=== PATIENT | female | born 1970 | race Caucasian/White ===

== ENCOUNTER 2023-04-05 08:00 | Outpatient (CLI) | payer BC, SELFPAY ==
--- NOTE | ~2023-04-05 | XR_ITS ---
XR knee RT min 4V 04/05/2023 22:40 INDICATION: Right knee pain PROCEDURE: 4 views right knee COMPARISON: No prior studies for comparison. FINDINGS: Fracture, dislocation or subluxation is not identified. There is anatomic alignment. Mild o steoarthritis. No joint effusion. The soft tissues appear within normal limits. No foreign bodies ar e identified. IMPRESSION: 1: Mild osteoarthritis of the right knee. Reviewed, dictated and finalized at location L.
--- NOTE | ~2023-04-05 | XR_ITS ---
EXAMINATION: XR foot LT min 3V DATE: 04/05/2023 22:40 INDICATION: Left foot pain TECHNIQUE: Dorsoplantar, lateral, and 2 oblique views of the left foot were obtained. COMPARISON: None. FINDINGS: No fracture, dislocation, or subluxation. Posterior and plantar calcaneal enthesophytes are noted. The bones, soft tissues, and joint spaces are otherwise normal. IMPRESSION: 1. No acute osseous abnormality. Reviewed, dictated and finalized at location A.
--- NOTE | ~2023-04-05 | XR_ITS ---
EXAMINATION: XR ankle LT min 3V DATE: 04/05/2023 22:40 INDICATION: Left ankle pain TECHNIQUE: Anteroposterior, lateral, mortise, and additional oblique view of the ankle were obtained. COMPARISON: None. FINDINGS: Bone alignment is normal. There is no fracture. The joint spaces and soft tissues are unrem arkable. Posterior and plantar calcaneal enthesophytes are noted. IMPRESSION: 1. No acute osseous abnormality. Reviewed, dictated and finalized at location A.
[2023-04-06 08:57] LABS: Alanine Aminotransferase 19 U/L (6-35); Albumin Level 4.6 g/dL (3.5-5.1); Alkaline Phosphatase 121 U/L (38-126); Anion Gap 8 mmol/L (8-16); Aspartate Amino Transferase 41 U/L (14-36); Bilirubin,Total 0.4 mg/dL (0.2-1.3); Blood Urea Nitrogen 9 mg/dL (7-17); CRP 0.7 mg/dL (<1.0); Calcium 9.9 mg/dL (8.4-10.2); Carbon Dioxide 28 mmol/L (22-30); Chloride 105 mmol/L (98-107); Cholesterol 228 mg/dL (0-200); Estimated Glomerular Filt Rate > 60; Glucose 88 mg/dL (65-110); HDL Direct 44 mg/dL; Hematocrit 41.4 % (37.0-47.0); Hemoglobin 13.3 g/dL (12.0-15.0); LDL Cholesterol Direct 123 mg/dL; Mean Corpuscular HGB Conc 32.1 g/dl (32-36); Mean Corpuscular Hemoglobin 29.9 pg (26-34); Mean Platelet Volume 9.5 fl (7.4-10.4); Platelet Count Result 436 k/mm3 (150-375); Potassium 3.7 mmol/L (3.4-5.0); Red Blood Count 4.45 M/mm3 (4.2-5.4); Red Cell Distribution Width 13.8 % (11.5-14.5); Sodium 141 mmol/L (137-145); Thyroid Stimulating Hormone 0.606 uIU/mL (0.465-4.680); Triglycerides 246 mg/dL (<150); White Blood Count 10.4 K/mm3 (4.5-10.0)
[2023-04-06 08:58] LABS: Basophils Percent Auto 0.3 % (0.2-1.2); Eosinophils Absolute Auto 0.3 K/mm3 (0-0.3); Eosinophils Percent Auto 2.4 % (0-4.4); Immature Granulocyte Absolute 0.03 K/mm3 (0.00-0.031); Immature Granulocyte Percent A 0.3 % (0-0.5); Lymphocytes Absolute Auto 2.03 K/mm3 (0.9-3.2); Lymphocytes Percent Auto 19.6 % (18.3-44.2); Monocytes Absolute Auto 0.8 K/mm3 (0.1-0.6); Monocytes Percent Auto 7.4 % (2.6-8.5); Neutrophils Absolute Auto 7.2 K/mm3 (1.3-6.7)
[2023-04-06 08:59] LABS: Free T4 Free Thyroxine 1.22 ng/mL (0.78-2.19); Vitamin D 25 Hydroxy 27.4 ng/mL
[2023-04-06 09:00] LABS: Hemoglobin A1C 5.7 % (<5.7)
[2023-04-06 09:01] LABS: Rheumatoid Factor < 8.6 IU/ML (<12)
[2023-04-06 09:02] LABS: Erythrocyte Sedimentation Rate 65 mm/hr (0-20)
[2023-04-06 09:03] LABS: Appearance Urine Clear (Clear); Color Urine Yellow (Yellow); Glucose Urine UA Negative (Negative); Ketones Urine Negative (Negative); Nitrate Urine Negative (Negative); Protein Urine Trace mg/dL (Negative); Specific Grav Ur 1.017 (1.001-1.035); pH Urine 5.5 (5.0-9.0)
[2023-04-06 09:04] LABS: Add Urine Microscopic? YES; Bilirubin Urine Negative (Negative); Leukocyte Esterase Ur Negative LEU/UL (Negative); Squamous Epithelial Cell Urine Few /hpf (Few); Urobilinogen Urine 0.2 mg/dL (<2.0); WBC Urine 0-5 /hpf
[2023-04-06 09:05] LABS: Bacteria Urine None seen /hpf
== END 2023-04-05 08:01 | disposition home or self-care (01) ==
LOC: ANHLAB 19:04
PROVIDERS: PCP Internal Medicine; Visit Provider Internal Medicine
DX: M17.11 Unilateral primary osteoarthritis, right knee (principal); M79.672 Pain in left foot
CPT/HCPCS: 36415; 73564; 73610; 73630; 80048; 80061; 80076; 81001; 82306; 83036; 84439; 84443; 85025; 85652; 86140; 86430

== ENCOUNTER 2023-08-18 00:59 | Day surgery (SDC) | payer BC, SELFPAY ==
[2023-08-16 11:26] VITALS: BMI 23.8
--- NOTE | 2023-08-16 11:31 | PC.NURSE ---
Report to the Outpatient Waiting Room, entrance under the green pavilion located off [facility], at time 7:30 on date 08/18/23. Planned Procedure Time: 9:30. Time changes happen often and if your time is changed the preop area will call you the afternoon before. - You and your visitor will be asked to self-screen and do not enter if you have any COVID symptoms. - A mask is optional within the hospital at this time. Patients may have clear liquids (water, carbonated beverages, clear teas, apple juice) until 3 hours prior to surgery (6:30) with a maximum of 20 ounces. - No food from midnight until time of surgery Take the following medications with a SIP of water the morning of surgery: NONE DO NOT STOP ANY OF YOUR OTHER PRESCRIPTION MEDICATIONS PRIOR TO SURGERY ?EXCEPT THE FOLLOWING Medications to discontinue per physician: VITAMINS/SUPPLEMENTS Date to take last dose: NO MORE UNTIL AFTER SURGERY Please no make-up, nail maltese, hairspray, perfume, deodorant, or body powder the day of surgery. No jewelry (including any body piercings) or valuables the day of surgery, leave them at home. Please take a shower or bath the night before, or the morning of, surgery with an antibacterial soap. Wear comfortable, loose fitting clothing. - Jewelry must be removed prior to entering the operating room. Rings and piercings that are not removed may be cut off. - The hospital will not accept responsibility for valuables. - Please leave all valuables, including medications, at home the day of surgery. If you are going home after surgery, a licensed sprinkler truck driver must drive you home. - NO public transportation without another adult if you receive anesthesia. - We recommend that an adult stay with you for 24 hours following discharge. - We also recommend that you do not drive, make important decision, drink alcoholic beverages, or take any drugs that were not prescribed by your health care provider for at least 24 hours after your discharge time. Follow any additional instructions given to you from your surgeon. If you or anyone in your household have experienced Covid symptoms in the past week, please notify your surgeon or the nurse liaison at the phone number below for possible testing. Telephone instructions given to PT - PATRICIA LERNER and asked if any additional questions and then verbalized understanding. Patient advised to call surgeon office or pre surgery nurse liaison [phone] if any additional questions.
--- NOTE | 2023-08-16 12:37 | PM.IMHP ---
H&P: HPI History of Present Illness Date/Time: 08/16/23 12:37 Chief Complaint: Pelvic pain all/dyspareunia/uterine prolapse Narrative: Is a 52-year-old female with severe pelvic pain. She is admitted for robotic total vaginal hysterectomy and bilateral salpingo-oophorectomy. Risks and benefits reviewed including min exclusive of , aspiration burning, bleeding, transfusion, perforation injury to bowel, bladder, ureters, or other internal organs with need for open laparotomy. She received the ACOG handout entitled hysterectomy as well as the Ki handout. She had all questions answered. She asked to proceed PMFSH Past Medical History Medical History Follow up Family History Family History Mother Family history of blood dyscrasia Hypertension Family history of arthritis Family history of diabetes mellitus in first degree relative Renal failure Chronic kidney disease Father Hypertension Family history of arthritis Family history of diabetes mellitus in first degree relative Family history of hearing loss Sepsis Sibling Fibromyalgia Social History Social History Smoking packs per day: 0.5 Smoking cigarettes per day: 10.0 Years smoked: 25 Smoking pack-years: 12.50 Smoking status: Current every day smoker Tobacco type: cigarettes Alcohol intake: current Alcohol use details: VERY RARE Substance use: never Substance use type: does not use Lack of Transportation: No Lack of Food: Never True Current Housing: I Have Housing Concerned About Future Housing: No Difficulty Paying Gas/Electric Bills: No Difficulty Paying for Meds: No Currently Unemployed: No Difficulty w/ Childcare or Family Care: No Living arrangements: with family Additional living arrangements comments: Occupation/Education: occupation Additional occupation/education comments: [email or web address] Gender identity (if verbalized by the patient): Female Sexual Orientation (if Verbalized by the Patient): Straight or Heterosexual Spiritual care concerns: No Meds Home Medications and Allergies Home Medications Medication Instructions Recorded Confirmed Type ascorbate calcium (vitamin C) 500 500 mg PO DAILY 04/10/23 08/16/23 History mg tablet collagen,hydrolysate 500 mg-biotin 1 cap PO DAILY 08/16/23 08/16/23 History 800 mcg-ascorbic acid 50 mg capsule (Collagen 1500 Plus C) Allergies Allergy/AdvReac Type Severity Reaction Status Date / Time Penicillins Allergy Unknown Swelling Verified 08/16/23 11:23 Sulfa (Sulfonamide Allergy Unknown Swelling Verified 08/16/23 11:23 Antibiotics) Exam Const: General: cooperative, healthy appearing and comfortable Nutritional Appearance: average body habitus Orientation/consciousness: oriented to person, oriented to place and oriented to time HENMT: Head: normal to inspection Resp: Effort & Inspection: normal respiratory effort Cardio: Rate: regular rate Rhythm: regular rhythm Heart sounds: S1 normal heart sound present and S2 normal heart sound present GI: Inspection: normal to inspection : External Female Exam: normal external appearance Speculum Exam - Vagina: normal appearance of the vagina Speculum Exam - Cervix: normal appearance of the cervix (Second-degree prolapse) Bimanual exam- vagina & uterus: enlarged Bimanual Exam- Adnexa, other: tender on the right Assessment and Plan Assessment and plan (1) Pelvic pain: Code(s): R10.2 - Pelvic and perineal pain Status: Acute (2) Dyspareunia: Status: Acute (3) Uterine prolapse: Code(s): N81.4 - Uterovaginal prolapse, unspecified Status: Acute Plan Robotic total vaginal hysterectomy and bilateral salpingo-oophorectomy
[2023-08-18] VITALS (12 sets, daily range): BP systolic 115–141; BP diastolic 62–82; PULSE 69–81; RESP 12–19; TEMP 36.4–36.8; O2SAT 95–100; BMI 25.6
--- NOTE | 2023-08-18 06:16 | WPDHPUPDATE1 ---
History and Physical Update Update Date/Time: 08/18/23 06:16 History and Physical has been reviewed, including an updated exam of the patient. There are NO changes in the patient's condition. Risks, benefits, and alternatives have been discussed and questions answered. Patient agrees to proceed with procedure.
[2023-08-18] MEDS: LACTATED RINGERS 1,000 ML 30 ML IV CONT ×2 (08:15→11:04)
[2023-08-18 08:24] LABS: Basophils Percent Auto 0.4 % (0.2-1.2); Eosinophils Absolute Auto 0.7 K/mm3 (0-0.3); Eosinophils Percent Auto 8.1 % (0-4.4); Hematocrit 37.4 % (37.0-47.0); Hemoglobin 11.9 g/dL (12.0-15.0); Immature Granulocyte Absolute 0.02 K/mm3 (0.00-0.031); Immature Granulocyte Percent A 0.2 % (0-0.5); Lymphocytes Absolute Auto 2.81 K/mm3 (0.9-3.2); Lymphocytes Percent Auto 33.7 % (18.3-44.2); Mean Corpuscular HGB Conc 31.8 g/dl (32-36); Mean Corpuscular Hemoglobin 29.8 pg (26-34); Mean Corpuscular Volume 93.7 fl (80-100); Mean Platelet Volume 9.1 fl (7.4-10.4); Monocytes Absolute Auto 0.7 K/mm3 (0.1-0.6); Monocytes Percent Auto 8.6 % (2.6-8.5); Neutrophils Absolute Auto 4.1 K/mm3 (1.3-6.7); Platelet Count Result 363 k/mm3 (150-375); Red Blood Count 3.99 M/mm3 (4.2-5.4); Red Cell Distribution Width 13.5 % (11.5-14.5); White Blood Count 8.4 K/mm3 (4.5-10.0)
[2023-08-18] MEDS: ACETAMINOPHEN 500 MG TABLET 1000 MG PO (08:24)
[2023-08-18] MEDS: KETOROLAC 15 MG/ML VIAL (*BKC) IV PUSH (08:24)
--- NOTE | 2023-08-18 09:21 | WPDANESEPPF ---
Anes - Initial Pre Proc Eval Procedure: Operation Date: 08/18/23 09:30 Proposed Procedures p Robotic Assisted Total Vaginal Hysterectomy with Bilateral Salpingo-Oophorectomy - Ranjan Gonzalez MD Date/Time: 08/18/23 09:21 Surgeon: Ranjan Gonzalez MD Pre Op Diagnosis: pelvic pain,2nd deg uterine prolapse,dyspareunia Patient Data Age: 52 Gender: F Height: 1.66 m Weight: 70.9 kg Last Vital Signs Temp 98.3 F 08/18/23 07:40 Pulse 81 08/18/23 07:40 Resp 16 08/18/23 07:40 BP 115/62 08/18/23 07:40 Pulse Ox 98 08/18/23 07:40 O2 Del Method Room Air 08/18/23 07:40 Allergies Allergy/AdvReac Type Severity Reaction Status Date / Time Penicillins Allergy Unknown Unknown Verified 08/18/23 08:51 Sulfa (Sulfonamide Allergy Unknown Itching Verified 08/18/23 08:51 Antibiotics) Home Medications Medication Instructions Recorded Confirmed Type ascorbate calcium (vitamin C) 500 500 mg PO DAILY 04/10/23 08/18/23 History mg tablet collagen,hydrolysate 500 mg-biotin 1 cap PO DAILY 08/16/23 08/18/23 History 800 mcg-ascorbic acid 50 mg capsule (Collagen 1500 Plus C) Laboratory Tests 08/18/23 08:14 WBC 8.4 K/mm3 (4.5-10.0) RBC 3.99 L M/mm3 (4.2-5.4) Hgb 11.9 L g/dL (12.0-15.0) Hct 37.4 % (37.0-47.0) MCV 93.7 fl (80-100) MCH 29.8 pg (26-34) MCHC 31.8 L g/dl (32-36) RDW 13.5 % (11.5-14.5) Plt Count 363 k/mm3 (150-375) MPV 9.1 fl (7.4-10.4) Immature Gran % (Auto) 0.2 % (0-0.5) Neut % (Auto) 49.0 % (45.5-73.1) Lymph % (Auto) 33.7 % (18.3-44.2) [place] % (Auto) 8.6 H % (2.6-8.5) Eos % (Auto) 8.1 H % (0-4.4) Baso % (Auto) 0.4 % (0.2-1.2) Lymph # (Auto) 2.81 K/mm3 (0.9-3.2) [place] # (Auto) 0.7 H K/mm3 (0.1-0.6) Eos # (Auto) 0.7 H K/mm3 (0-0.3) Baso # (Auto) 0.0 K/mm3 (0.0-0.1) Abs Immat Gran (auto) 0.02 K/mm3 (0.00-0.031) Absolute Neuts (auto) 4.1 K/mm3 (1.3-6.7) Absolute Nucleated RBC 0.0 K/mm3 (0.0-0.012) Nucleated RBC % 0.0 % (0.0-0.2) Blood Type O Positive Antibody Screen Negative Patient hx anesthesia problems: none Family hx anesthesia problems: none Results Review: All pre-operative results and documents have been reviewed as part of the pre-operative evaluation. [facility] Past Medical History Medical History Follow up Family History Family History Mother Family history of blood dyscrasia Hypertension Family history of arthritis Family history of diabetes mellitus in first degree relative Renal failure Chronic kidney disease Father Hypertension Family history of arthritis Family history of diabetes mellitus in first degree relative Family history of hearing loss Sepsis Sibling Fibromyalgia Social History Social History Smoking packs per day: 0.5 Smoking cigarettes per day: 10.0 Years smoked: 25 Smoking pack-years: 12.50 Smoking status: Current every day smoker Tobacco type: cigarettes Alcohol intake: current Alcohol use details: VERY RARE Substance use: never Substance use type: does not use Lack of Transportation: No Lack of Food: Never True Current Housing: I Have Housing Concerned About Future Housing: No Difficulty Paying Gas/Electric Bills: No Difficulty Paying for Meds: No Currently Unemployed: No Difficulty w/ Childcare or Family Care: No Living arrangements: with family Additional living arrangements comments: Occupation/Education: occupation Additional occupation/education comments: [employer] Gender identity (if verbalized by the patient): Female Sexual Orientation (if Verbalized by the Patient): Straight or Heterosexual Spiritual care concerns: No
[2023-08-18] MEDS: ceFAZolin 2 GM/D5W 50 ML 2 GM/50 ML BAG IVPB (09:34)
--- NOTE | 2023-08-18 10:32 | P.OP_ITS ---
Procedure Note - Detailed Date of Procedure 08/18/23 Pre-op Diagnosis pelvic pain,2nd deg uterine prolapse,dyspareunia Post-op Diagnosis Same Procedure Performed Robotic total vaginal hysterectomy and right salpingo-oophorectomy Surgeon Ranjan Gonzalez MD Anesthesia General Indications There 52-year-old female with severe pelvic pain and prolapse status post left salpingo-oophorectomy Findings Absent left ovary and tube. Second-degree prolapse. Description of Procedure Patient was prepped draped sterile fashion placed in the dorsal lithotomy position. Excellent general trach anesthesia weighted speculum placed in posterior fornix vagina. Anterior lip of the cervix grasped with single-tooth tenaculum. Uterus sounded 8cm. Serial dilatation with fragmented dilators performed followed passes the 8. ANU and the 3. Cold cup. Next 16 cans 16 Lebanese catheter was placed. The weighted speculum and single-tooth removed. The gloves were changed. A supraumbilical incision made the Veress needle passed in the abdomen. Abdomen filled with CO2 gas 15mmHg. The 8mm trocar advanced in the abdomen. Downside visualized no injury seen. Patient placed in Trendelenburg 18? and right left lateral quadrant incisions made. 8mm trocars advanced under direct visualization assuring no injury. The right upper quadrant incision made the 8mm trocar advanced under direct visualization assuring no injury. The robot was docked. Attention was turned to the middle school guidance counselor. The left round ligament was grasped, burned, cut. Anteriorly a bladder flap was formed by sharply dissecting the peritoneum and reflecting the bladder caudally away from the cervix and uterus to the opposite round ligament which was clamped, burned, cut. The left ovary and tube were surgically absent. The right infundibulopelvic structures were skeletonized remove the right ovary tube clamped, burned, cut and brought to the level of previously cut round ligament. The cardinal broad ligaments on the left were grasped, burned, cut and brought down the lateral edge of the uterus until the uterine vessels could be seen. These were individually clamped, burned, cut. In similar fashion on the right the cardinal broad ligaments were skeletonized clamping burning cutting and hugging the cervix and uterus until the uterine vessels could be seen on the right. These were clamped, burned, cut. Blanching the uterus was seen. A colpotomy incision was made in the uterus cervix right ovary and tube removed through the vagina. The vagina then closed with continuous running 0V lock from lateral edge to lateral edge back to midline. Irrigation undertaken until clear and blood loss estimated at50cc. The robot was undocked. The gas removed from the abdomen. The trocars removed the incisions closed with 4-0 Monocryl and glue. The patient was awakened went to recovery in satisfactory condition. All sponge, needle, instrument counts were correct. There were no immediate complications noted Estimated Blood Loss 50 Drains No Packing No Pathology Yes Complications No immediate complications Condition Stable Disposition PACU
--- NOTE | 2023-08-18 10:36 | P.DS_ITS ---
DS: Admitting Diagnosis Discharge Date 08/18/2023 Admitting Diagnosis Uterine prolapse/dyspareunia/pelvic pain DS: Discharge Diagnosis Discharge Diagnosis (1) Uterine prolapse: Code(s): N81.4 - Uterovaginal prolapse, unspecified Status: Acute (2) Dyspareunia: Status: Acute (3) Pelvic pain: Code(s): R10.2 - Pelvic and perineal pain Status: Acute DS: Summary Hospital Course Reason for hospitalization: Patient was admitted for robotic total vaginectomy and right salpingo- oophorectomy on 08/18 23. Hospital Course: Patient underwent an unremarkable procedure. She remained afebrile for stay. She was up, ED where diet, ambulating, voiding without difficulty, and generally without complaints Time Spent with Patient Time attestation: Total time spent providing and/or coordinating discharge services: Exam Const: General: cooperative, healthy appearing and comfortable Nutritional Appearance: average body habitus Orientation/consciousness: oriented to person, oriented to place and oriented to time HENMT: Head: normal to inspection Resp: Effort & Inspection: normal respiratory effort Cardio: Rate: regular rate Rhythm: regular rhythm Heart sounds: S1 normal heart sound present and S2 normal heart sound present GI: Inspection: normal to inspection and incision (Wounds are clean dry and intact) DS: Data Data Completed and Pending Pending studies at discharge: Pending at discharge 08/18/23 10:15 Surgical [PTH] Routine Labs on day of discharge: Labs from last 24 hours 08/18/23 08:14 WBC 8.4 RBC 3.99 L Hgb 11.9 L Hct 37.4 MCV 93.7 MCH 29.8 MCHC 31.8 L RDW 13.5 Plt Count 363 MPV 9.1 Immature Gran % (Auto) 0.2 Neut % (Auto) 49.0 Lymph % (Auto) 33.7 [place] % (Auto) 8.6 H Eos % (Auto) 8.1 H Baso % (Auto) 0.4 Lymph # (Auto) 2.81 [place] # (Auto) 0.7 H Eos # (Auto) 0.7 H Baso # (Auto) 0.0 Abs Immat Gran (auto) 0.02 Absolute Neuts (auto) 4.1 Absolute Nucleated RBC 0.0 Nucleated RBC % 0.0 Blood Type O Positive Antibody Screen Negative Discharge Plan Discharge Patient Disposition: Home, Self-Care Discharge Instructions: Follow up in [address] Luis Gonzalez. Patient Instructions: Laparoscopic Hysterectomy (DC) Stand Alone Forms: General Discharge Instructions Follow-up/Referrals: Ranjan Hassan MD [Physician] - Discharge Medications: No Action ascorbate calcium (vitamin C) 500 mg tablet 500 mg PO DAILY Collagen 1500 Plus C 500 mg-800 mcg- 50 mg Capsule 1 cap PO DAILY Other Ambulatory Orders: Complete Blood Count with Diff (Routine) Timeframe: 20230816 Location: Determined by Patient Ordered By: Ranjan Gonzalez Type and Screen 14 Day (Routine) Timeframe: 20230816 Location: Determined by Patient Ordered By: Ranjan Gonzalez
[2023-08-18] MEDS: fentaNYL CITRATE INJ (*CRX) 100 MCG/2 ML VIAL 25 MCG IV PUSH ×4 (10:55→11:12)
[2023-08-18] MEDS: HYDROmorphone HCL INJ (*CRX) 1 MG/ML SYR 0.5 MG IV PUSH ×6 (11:20→12:12)
[2023-08-18] MEDS: ONDANSETRON INJ 4 MG/2 ML VIAL IV PUSH ×2 (11:56→17:52)
--- NOTE | 2023-08-18 12:40 | PC.NURSE ---
Patient transferred to post room #285 via ( stretcher ). Support person present. Oriented to unit, room, information board, rooming in, admission packet and security measures. Patient verbalizes understanding.
[2023-08-18] MEDS: DEXTROSE 5%/LACTATED RINGERS 1,000 ML 125 ML IV CONT (12:54)
[2023-08-18] MEDS: KETOROLAC 30 MG/ML VIAL (*BKC) IV PUSH (12:55)
[2023-08-18] MEDS: HYDROcodone/acetaminophen (*CRX) 10-325 MG TABLET 1 TAB PO ×2 (12:55→15:59)
[2023-08-18] MEDS: DOCUSATE SODIUM 100 MG CAPSULE PO (15:59)
== END 2023-08-18 18:40 | disposition home or self-care (01) ==
LOC: ANHSURGERY 07:30 → ANHOB2 12:37
PROVIDERS: PCP Internal Medicine; Visit Provider Obstetrics & Gynecology
PROC: (CPT 58552; principal; 2023-08-18 09:30)
DX: N81.2 Incomplete uterovaginal prolapse (principal); N94.10 Unspecified dyspareunia; R10.2 Pelvic and perineal pain; N72 Inflammatory disease of cervix uteri; N88.8 Other specified noninflammatory disorders of cervix uteri; N80.03 Adenomyosis of the uterus; N83.291 Other ovarian cyst, right side; F17.210 Nicotine dependence, cigarettes, uncomplicated
CPT/HCPCS: 58552; S2900; 36415; 85025; 86850; 86900; 86901; 88307; 99199; A9270; J0330; J0690; J1100; J1170; J1885; J2250; J2405; J2704; J3010; J7030; J7120; J7121

== ENCOUNTER 2023-12-14 16:38 | Outpatient (CLI) | payer BC, SELFPAY ==
--- NOTE | ~2023-12-14 | XR_ITS ---
EXAMINATION: XR chest 2V DATE: 12/14/2023 16:53 INDICATION: R09.89 Other specified symptoms and signs. TECHNIQUE: Frontal and lateral views of the chest were obtained. COMPARISON: None. FINDINGS: There is no pneumonia, pleural effusion, or pneumothorax. The heart size is normal. IMPRESSION: 1. No acute cardiopulmonary disease. Reviewed, dictated and finalized at location E. [employer]
== END 2023-12-14 16:39 | disposition home or self-care (01) ==
PROVIDERS: PCP Internal Medicine; Visit Provider Internal Medicine
DX: R09.89 Other specified symptoms and signs involving the circulatory and respiratory systems (principal)
CPT/HCPCS: 71046

== ENCOUNTER 2024-02-07 09:43 | Outpatient (CLI) | payer BC, SELFPAY ==
--- NOTE | ~2024-02-07 | XR_ITS ---
Clinical Indication: Upper respiratory infection PA and lateral views of the chest: Comparison: 12/14/2023 Findings: The lungs are clear, without evidence of focal consolidation or pleural effusion. Cardiome diastinal silhouette is within normal limits. Bones and soft tissues are unremarkable. Impression: Normal chest. Reviewed, dictated and finalized at [facility]. Impression: Normal chest.
--- NOTE | ~2024-02-07 | XR_ITS ---
EXAM: XR sinus min 3V DATE: 02/07/2024 10:13 HISTORY: J06.9 - CHRONIC SINUSITIS . COMPARISON: None available. FINDINGS: Normal mineralization. No abnormal intracranial calcification. Intact symmetric orbits. No fracture. The aerated spaces are clear. IMPRESSION: Unremarkable sinus radiograph findings. If clinical suspicion of sinus disease is high or symptoms persist, consider CT of the sinuses for further evaluation. Reviewed, dictated and finalized at location K. IMPRESSION: Unremarkable sinus radiograph findings. If clinical suspicion of si nus disease is high or symptoms persist, consider CT of the sinuses for further evaluation.
== END 2024-02-07 09:44 | disposition home or self-care (01) ==
PROVIDERS: PCP Internal Medicine; Visit Provider Internal Medicine
DX: J06.9 Acute upper respiratory infection, unspecified (principal); J32.9 Chronic sinusitis, unspecified; M25.561 Pain in right knee
CPT/HCPCS: 70220; 71046; 73562